=== PATIENT | female | born 1950 | race Two or more races ===

== ENCOUNTER → 2018-03-07 | Outpatient (CLI) | payer OTHER | END | disposition home or self-care (01) | LOC: MAMO-SONO 13:38 | DX: Z12.31 Encounter for screening mammogram for malignant neoplasm of breast (principal); Z87.898 Personal history of other specified conditions; N60.11 Diffuse cystic mastopathy of right breast; N60.12 Diffuse cystic mastopathy of left breast; D25.1 Intramural leiomyoma of uterus ==

== ENCOUNTER 2018-03-20 15:14 | Outpatient (CLI) | payer OTHER | END 2018-03-20 15:23 | disposition home or self-care (01) | LOC: RAD 501 15:14 | DX: M79.642 Pain in left hand (principal) ==

== ENCOUNTER 2019-03-14 14:24 | Outpatient (CLI) | payer OTHER | END 2019-03-14 14:26 | disposition home or self-care (01) | LOC: RAD 14:24 | DX: M25.561 Pain in right knee (principal); M25.562 Pain in left knee ==

== ENCOUNTER 2019-05-09 13:46 | Outpatient (CLI) | payer OTHER | END 2019-05-09 13:57 | disposition home or self-care (01) | LOC: MAMO-SONO 13:46 | DX: N60.11 Diffuse cystic mastopathy of right breast (principal); N60.12 Diffuse cystic mastopathy of left breast; D25.1 Intramural leiomyoma of uterus; Z12.31 Encounter for screening mammogram for malignant neoplasm of breast; Z87.898 Personal history of other specified conditions; N60.19 Diffuse cystic mastopathy of unspecified breast; R10.2 Pelvic and perineal pain; R10.84 Generalized abdominal pain; M89.8X8 Other specified disorders of bone, other site; M85.89 Other specified disorders of bone density and structure, multiple sites; M81.0 Age-related osteoporosis without current pathological fracture ==

== ENCOUNTER 2019-09-11 14:08 | Outpatient (CLI) | payer OTHER | END 2019-09-11 14:13 | disposition home or self-care (01) | LOC: SONOGRAMA 14:08 | DX: N83.291 Other ovarian cyst, right side (principal) ==

== ENCOUNTER 2019-10-03 11:32 | Outpatient (CLI) | payer OTHER | END 2019-10-03 11:53 | disposition home or self-care (01) | LOC: RAD 11:32 | DX: Z01.811 Encounter for preprocedural respiratory examination (principal) ==

== ENCOUNTER 2020-07-19 08:00 | Outpatient (CLI) | payer OTHER | END 2020-07-19 18:00 | disposition home or self-care (01) | LOC: PPH VACUNA 08:00 | PROVIDERS: ATTEND Emergency Medicine Pediatric Emergency Medicine | DX: Z23 Encounter for immunization (principal) ==

== ENCOUNTER 2020-09-14 12:27 | Outpatient (CLI) | payer OTHER | END 2020-09-14 12:33 | disposition home or self-care (01) | LOC: MAMO-SONO 12:27 | PROVIDERS: ATTEND Obstetrics & Gynecology Gynecology | DX: Z12.31 Encounter for screening mammogram for malignant neoplasm of breast (principal); N64.59 Other signs and symptoms in breast; D25.1 Intramural leiomyoma of uterus; N60.11 Diffuse cystic mastopathy of right breast; N60.12 Diffuse cystic mastopathy of left breast; R10.2 Pelvic and perineal pain; R10.84 Generalized abdominal pain; M81.0 Age-related osteoporosis without current pathological fracture; M85.89 Other specified disorders of bone density and structure, multiple sites; M89.8X8 Other specified disorders of bone, other site ==

== ENCOUNTER → 2020-10-29 | Outpatient (CLI) | payer OTHER | END | disposition home or self-care (01) | LOC: RAD 09:50 | PROVIDERS: ATTEND Surgery | DX: Z01.818 Encounter for other preprocedural examination (principal) ==

== ENCOUNTER 2021-04-20 08:00 | Outpatient (CLI) | payer OTHER | END 2021-04-20 08:30 | disposition home or self-care (01) | LOC: PPH VACUNA 08:00 | PROVIDERS: ATTEND Emergency Medicine Pediatric Emergency Medicine | DX: Z23 Encounter for immunization (principal) ==

== ENCOUNTER 2021-10-24 08:00 | Outpatient (CLI) | payer OTHER | END 2021-10-24 08:30 | disposition home or self-care (01) | LOC: PPH VACUNA 08:00 | PROVIDERS: ATTEND Emergency Medicine Pediatric Emergency Medicine | DX: Z23 Encounter for immunization (principal) ==

== ENCOUNTER → 2022-01-06 | Outpatient (CLI) | payer OTHER | END | disposition home or self-care (01) | LOC: MAMO-SONO 10:54 | PROVIDERS: ATTEND Obstetrics & Gynecology Gynecology | DX: N60.19 Diffuse cystic mastopathy of unspecified breast (principal); N60.12 Diffuse cystic mastopathy of left breast; N60.11 Diffuse cystic mastopathy of right breast; R10.2 Pelvic and perineal pain; R10.9 Unspecified abdominal pain; N83.291 Other ovarian cyst, right side; D25.1 Intramural leiomyoma of uterus ==

== ENCOUNTER 2022-06-28 15:35 | Outpatient (CLI) | payer OTHER | END 2022-06-28 15:45 | disposition home or self-care (01) | LOC: PPH VACUNA 15:35 | PROVIDERS: ATTEND Emergency Medicine Pediatric Emergency Medicine | DX: Z23 Encounter for immunization (principal) ==

== ENCOUNTER 2023-08-09 09:28 | Outpatient (CLI) | payer OTHER | END 2023-08-09 10:00 | disposition home or self-care (01) | LOC: MAMO-SONO 09:28 | PROVIDERS: ATTEND Obstetrics & Gynecology Gynecology | DX: N60.11 Diffuse cystic mastopathy of right breast (principal); N60.12 Diffuse cystic mastopathy of left breast; D25.1 Intramural leiomyoma of uterus; R10.2 Pelvic and perineal pain; R10.9 Unspecified abdominal pain ==

== ENCOUNTER 2024-10-14 10:25 | Outpatient (CLI) | payer OTHER | END 2024-10-14 10:40 | disposition home or self-care (01) | LOC: MAMO-SONO 10:25 | PROVIDERS: ATTEND Obstetrics & Gynecology Gynecology | DX: N60.11 Diffuse cystic mastopathy of right breast (principal); N60.12 Diffuse cystic mastopathy of left breast; D25.1 Intramural leiomyoma of uterus; N60.19 Diffuse cystic mastopathy of unspecified breast; R10.2 Pelvic and perineal pain; N83.291 Other ovarian cyst, right side; Z12.31 Encounter for screening mammogram for malignant neoplasm of breast ==